=== PATIENT | female | born 1990 | race African-American/Black ===

== ENCOUNTER 2021-03-21 12:43 | Emergency (ER) | payer OTHER ==
[~2021-03-21] VITALS: Ht 170.2 cm; Wt 102.1 kg
[2021-03-21] MEDS ORDERED: OXYCODONE/APAP 5-325 MG TABLET PO ONE (14:00)
[2021-03-21] MEDS ORDERED: OXYCODONE/APAP 5-325 MG TABLET ONE (14:15)
--- NOTE | 2021-03-21 15:18 | NUR ---
Pt is at Radiology, will assess PS when pt returns to unit.
--- NOTE | 2021-03-21 16:45 | NUR ---
Sling placed over RUE and knee immobilizer over (L) knee, per provider order. Cap refill WNL. Instructions for proper use and wear provided. Pt states understanding information.
[2021-03-21] MEDS ORDERED: OXYC-133 PO (16:51)
[2021-03-21 16:59] VITALS: BP 103/69
== END 2021-03-21 16:45 | disposition home or self-care (01) ==
LOC: ER 12:46
DX: S80.01XA Contusion of right knee, initial encounter (principal); S40.021A Contusion of right upper arm, initial encounter; V22.9XXA Unspecified motorcycle rider injured in collision with two- or three-wheeled motor vehicle in traffic accident, initial encounter; Y92.410 Unspecified street and highway as the place of occurrence of the external cause; M32.9 Systemic lupus erythematosus, unspecified; G89.29 Other chronic pain; K80.20 Calculus of gallbladder without cholecystitis without obstruction
CPT/HCPCS: 70450; 72125; 73060; 73090; 73120; 73551; A4663